=== PATIENT | male | born 1965 ===

== ENCOUNTER 2021-02-20 03:09 | Outpatient (CLI) | payer OTHER, SELFPAY ==
--- NOTE | 2021-02-20 10:18 | DI.RAD_ITS ---
Exam(s) XR CHEST 2V PA LATERAL EXAM: XR CHEST 2V PA LATERAL CLINICAL HISTORY: SOB, R06.02, ISCHEMIC HEART DISEASE, I25.9. TECHNIQUE: 2D digital imaging was performed. COMPARISON: No exams were available for comparison FINDINGS: Heart size is normal. The mediastinum is not widened. Lungs are clear. No infiltrates nor pleural effusions. IMPRESSION: No acute pulmonary findings. DATA REPOSITORY: RADIATION DOSE DELIVERED:
--- NOTE | 2021-02-20 10:19 | DI.US_ITS ---
APPROVED REPORT EXAM: Comprehensive 2D, Doppler, and color-flow Echocardiogram Patient Location: Out-Patient [facility] Mckay: Breanna Brooks RDCS (AE) Indications: SOB, Ischemic heart disease Other Information Study Quality: Good Conclusion Left Ventricle : The left ventricle is normal size. The left ventricular ejection fraction is within the normal range. There is normal left ventricular wall thickness. There is normal LV segmental wall motion. The left ventricular diastolic function is normal. LVEF is 60%. Right Ventricle : The right ventricle is normal size. The right ventricular systolic function is norm al. The RVSP is 20.6mmHg. Atria : The left atrium size is normal. The right atrium size is normal. Valves: There are no hemodynamically significant valvular lesions. Great Vessels : The aortic root is normal in size. The ascending aorta is mildly dilated. Aortic arch is normal in caliber. IVC is normal in size and collapses >50% with inspiration. Wall motion Left Ventricle The left ventricle is normal size. The left ventricular ejection fraction is within the normal range. There is normal left ventricular wall thickness. There is normal LV segmental wall motion. The left ventricular diastolic function is normal. There is no ventricular septal defect visualized. LVEF is 6 0%. Right Ventricle The right ventricle is normal size. The right ventricular systolic function is normal. The RVSP is 20 .6mmHg. Atria The left atrium size is normal. The right atrium size is normal. The interatrial septum is intact wit h no evidence for an atrial septal defect. Aortic Valve The aortic valve is normal in structure. Aortic valve is trileaflet. There is no aortic valvular sten osis. Mild aortic regurgitation. Mitral Valve The mitral valve is normal in structure. No evidence of mitral valve stenosis. Trace to mild mitral r egurgitation. Tricuspid Valve The tricuspid valve is normal in structure. There is no tricuspid valve stenosis. Mild tricuspid regu rgitation. Pulmonic Valve The pulmonary valve is normal in structure. There is no pulmonic valvular stenosis. Trace pulmonic re gurgitation. Great Vessels The aortic root is normal in size. The ascending aorta is mildly dilated. Aortic arch is normal in ca liber. IVC is normal in size and collapses >50% with inspiration. Pericardium There is no pericardial effusion. 2D Dimensions IVSD d PLAX 0.91 cm M: 0.6-1.2 LV Vol A2C d MOD 139.1 mL LVPW d PLAX 0.91 cm M: 0.6 - 1.2 LV Vol A4C d MOD 159.3 mL LVID d PLAX 4.83 cm M: 4.2 - 5.8 LA vol/ BSA A4C s A-L 31.4 mL/m2 LVDs 3.20 cm M: 2.5 - 4.0 LA Area A4C s MOD 19.12 cm2 Ao Root d 3.82 cm M: 3.1 - 3.7 LV EF A4C MOD 59.8 % RA Area A4C 18.74 cm2 LV EF A2C MOD 58.7 % RA Vol/ BSA A4C s A-L 27.2 mL/m2 LV EF Biplane MOD 59.5 % Ao Asc Diam d 3.63 cm M: 2.6 - 3.4 SV 89.33 mL LV EF Teichholz 62.2 % SV Index 45.70 mL/m2 LVEF (Odell's) 59.47 % M: 52 - 72 LV Volume 113.53 mL M: 62 - 150 LV Volume Index 58.22 mL/m2 M: 34 - 74 LV Vol Biplane MOD 150.2 mL FS 33.50 % M-Mode TAPSE 2.61 cm (M/F) >1.7 LV Diastology MV E' medial 0.095 (>0.07 m/s) E/A Ratio 1.4 LV E/e MED 6.05 (<14) MV E Vmax 0.57 (0.4-1.3 m/s) MV E' lateral 0.095 (>0.1 m/s) MV A Vmax 0.40 (0.4-1.3 m/s) LV E/e LAT 6.05 (<14) MV E/A Ratio 1.28 MV E/E' medial 6.06 MV E/E' lateral 6.06 Aortic Valve LVOT Area 4.12 cm2 AoV Area Vmax 3.61 cm2 LVOT Vmax 0.87 m/s AoV Area/ BSA (Vmax) 1.85 cm2/m2 LVOT Mean Jam. 0.65 m/s KOBI Mean Jam. 3.54 cm2 LVOT Peak Grad 3.1 mmHg KOBI Mean Jam. Index 1.81 cm2/m2 LVOT Mean Grad 1.8 mmHg AR DT 3829 msec LVOT VTI 0.183 m AR PHT 1110 msec LVOT Diam s 2.25 cm AoV Vmax 1.00 m/s Velocity Ratio 0.87 AoV Mean Jam. 0.76 m/s AoV Peak Grad 4.0 mmHg LVOT SV 75.35 mL AoV Mean Grad 2.5 mmHg AoV VTI 0.210 m AoV Area VTI 3.59 cm2 AoV Area/ BSA (VTI) 1.84 cm/m2 Mitral Valve MV DT 205 (160-240 msec) MV PHT 59 msec MV Area PHT 3.71 cm2 MV VTI 0.289 m MV Area VTI 2.61 (4.0-6.0 cm2) Pulmonary Valve PV Vmax 0.82 (0.5-1.5 m/s) RVOT Peak Gr. 1.10 mmHg PV Peak Grad 2.7 mmHg RVOT Mean Gr. 0.60 mmHg PV Mean Grad 1.6 mmHg RVOT VTI 0.111 m PV VTI 0.188 m RVOT Vmax 0.52 m/s Tricuspid Valve TR Peak Grad 17.6 mmHg TR Vmax 2.10 m/s RA Pressure 3.00 mmHg RVSP (TR) 20.6 mmHg
== END 2021-02-20 03:29 ==
PROVIDERS: Visit Provider Orthopaedic Surgery
DX: R06.02 Shortness of breath (principal); I25.9 Chronic ischemic heart disease, unspecified; I77.810 Thoracic aortic ectasia
CPT/HCPCS: 71046; 93306

== ENCOUNTER 2021-02-20 04:33 | Outpatient (CLI) | payer OTHER, SELFPAY ==
[2021-02-20] MEDS: Albuterol HFA 18 GM 200 PUFF INH IH (12:03)
[2021-02-20] MEDS: Inhaler, Assist Device 1 EACH MC (12:03)
--- NOTE | 2021-02-22 13:58 | W.PFT ---
Date of service: 02/20/21 Time of Service: 11:09 Pulmonary Function Test Result Interpretation Spirometry: No evidence of obstructive airways disease, no bronchodilator response Impression Normal spirometry Clinical Correlation therefore is recommended.
== END 2021-02-20 04:34 | disposition home or self-care (01) ==
LOC: RT 04:33
PROVIDERS: Visit Provider Orthopaedic Surgery
DX: R06.02 Shortness of breath (principal); I25.9 Chronic ischemic heart disease, unspecified
CPT/HCPCS: 94060